=== PATIENT | female | born 1985 | race Caucasian/White ===

== ENCOUNTER 2017-06-28 16:38 | Emergency (ER) | payer MEDICAID ==
[~2017-06-28] VITALS: Ht 162.6 cm; Wt 88.0 kg
[2017-06-28] MEDS ORDERED: HYDROCODONE/ACETAMINOPHEN 5/325MG TABLET PO ONE (17:45)
[2017-06-28 19:52] VITALS: BP 124/86
== END 2017-06-28 19:54 | disposition home or self-care (01) ==
LOC: ER 17:30
DX: S20.219A Contusion of unspecified front wall of thorax, initial encounter (principal); M54.9 Dorsalgia, unspecified; F17.200 Nicotine dependence, unspecified, uncomplicated; W10.9XXA Fall (on) (from) unspecified stairs and steps, initial encounter
CPT/HCPCS: 71110; 72070; 81025; 99284

== ENCOUNTER 2018-01-14 14:58 | Emergency (ER) | payer MEDICAID ==
[~2018-01-14] VITALS: Ht 165.1 cm; Wt 91.0 kg
[2018-01-14 15:07] VITALS: BP 118/86
== END 2018-01-14 18:59 | disposition left against medical advice (07) ==
LOC: ER 17:49
DX: Z53.21 Procedure and treatment not carried out due to patient leaving prior to being seen by health care provider (principal)

== ENCOUNTER 2020-12-26 22:02 | Emergency (ER) | payer MEDICAID ==
[~2020-12-26] VITALS: Ht 162.6 cm; Wt 81.0 kg
[2020-12-26 22:03] VITALS: BP 132/88
== END 2020-12-26 23:19 | disposition home or self-care (01) ==
LOC: ER 22:02
DX: F41.9 Anxiety disorder, unspecified (principal); F14.10 Cocaine abuse, uncomplicated; E11.9 Type 2 diabetes mellitus without complications
CPT/HCPCS: 81025; 93005; 99283

== ENCOUNTER 2021-01-13 01:15 | Emergency (ER) | payer MEDICAID ==
[~2021-01-13] VITALS: Ht 157.5 cm; Wt 73.0 kg
[2021-01-13 01:28] VITALS: BP 120/74
[2021-01-13] MEDS ORDERED: HYDROCODONE/ACETAMINOPHEN 5/325MG TABLET PO ONE (03:45)
[2021-01-13 05:44] LABS: CLARITY URINE TURBID (CLEAR); COLOR URINE YELLOW (YELLOW); KETONES URINE NEGATIVE (NEGATIVE); LEUKOCYTE ESTERASE URINE 3+ (NEGATIVE); NITRITE URINE NEGATIVE (NEGATIVE); OCCULT BLOOD URINE 2+ (NEGATIVE); PH URINE 5.5 (4.5-8.0); PROTEIN URINE 3+ (NEGATIVE); SPECIFIC GRAVITY URINE 1.014 (1.005-1.030); UROBILINOGEN URINE 0.2 E.U./dL (0.2-1.0)
[2021-01-13] MEDS ORDERED: CEPH250C2 MT (06:40)
[2021-01-13] MEDS ORDERED: T3 PO (06:41)
[2021-01-13] MEDS ORDERED: IBUPROFEN 600MG TABLET PO ONE (06:45)
[2021-01-14] MEDS ORDERED: IBUP-2030 MT (06:01)
== END 2021-01-13 07:19 | disposition home or self-care (01) ==
LOC: ER 01:15
DX: S22.31XA Fracture of one rib, right side, initial encounter for closed fracture (principal); F17.200 Nicotine dependence, unspecified, uncomplicated; F14.10 Cocaine abuse, uncomplicated; E11.9 Type 2 diabetes mellitus without complications; Y04.0XXA Assault by unarmed brawl or fight, initial encounter; Y93.89 Activity, other specified; Y92.89 Other specified places as the place of occurrence of the external cause; Y99.8 Other external cause status
CPT/HCPCS: 71101; 81003; 81025; 99285

== ENCOUNTER 2021-01-13 22:41 | Emergency (ER) | payer MEDICAID ==
[~2021-01-13] VITALS: Ht 172.7 cm; Wt 75.0 kg
[~2021-01-13 22:41] MED LIST: CEPH250C2 MT; T3 PO
[2021-01-14] MEDS ORDERED: HYDROCODONE/ACETAMINOPHEN 5/325MG TABLET PO ONE (01:30)
[2021-01-14] MEDS ORDERED: IBUP-2030 MT (06:01)
[2021-01-14] MEDS ORDERED: KETOROLAC 60MG/2ML VIAL IM ONE (06:15)
[2021-01-14 06:17] VITALS: BP 130/82
== END 2021-01-14 06:30 | disposition home or self-care (01) ==
LOC: ER 22:41
DX: S00.01XA Abrasion of scalp, initial encounter (principal); S20.212A Contusion of left front wall of thorax, initial encounter; Y04.2XXA Assault by strike against or bumped into by another person, initial encounter; Y93.89 Activity, other specified; Y92.512 Supermarket, store or market as the place of occurrence of the external cause; F14.90 Cocaine use, unspecified, uncomplicated
CPT/HCPCS: 70450; 71101; 72125; 81025; 96372; 99284; J1885

== ENCOUNTER 2021-03-31 05:29 | Emergency (ER) | payer MEDICAID ==
[~2021-03-31] VITALS: Ht 157.5 cm; Wt 73.0 kg
[~2021-03-31 05:29] MED LIST changes: +IBUP-2030 MT
[2021-03-31] MEDS ORDERED: IBUPROFEN 400MG TABLET PO ONE (06:00)
[2021-03-31] MEDS ORDERED: KETOROLAC 60MG/2ML VIAL IM ONE (09:15)
[2021-03-31 11:32] VITALS: BP 131/85
== END 2021-03-31 12:06 | disposition home or self-care (01) ==
LOC: ER 05:29
DX: S00.03XA Contusion of scalp, initial encounter (principal); F14.10 Cocaine abuse, uncomplicated; Z98.890 Other specified postprocedural states; V09.9XXA Pedestrian injured in unspecified transport accident, initial encounter; Y93.89 Activity, other specified; Y92.89 Other specified places as the place of occurrence of the external cause; Y99.8 Other external cause status
CPT/HCPCS: 70450; 73030; 96372; 99284; J1885

== ENCOUNTER 2021-04-02 02:43 | Emergency (ER) | payer MEDICAID ==
[~2021-04-02] VITALS: Ht 165.1 cm; Wt 78.0 kg
[2021-04-02 06:46] LABS: BASOPHILS % 0.6 % (0.0-2.0); EOSINOPHILS % 3.8 % (0.0-5.0); HEMOGLOBIN. 10.6 g/dL (12.0-16.0); LYMPHOCYTES % 33.7 % (20.0-50.0); MEAN CORPUSCULAR HEMOGLOBIN 26.8 pg (28.0-32.0); MEAN CORPUSCULAR VOLUME 78.2 fL (81.0-99.0); MEAN PLATELET VOLUME 7.1 fl (7.4-10.4); MONOCYTES % 8.6 % (2.0-8.0); NEUTROPHILS % 53.3 % (40.0-76.0); PLATELET 352 x1000/uL (130-400); RED BLOOD CELL COUNT 3.96 mill/uL (4.2-5.4); RED CELL DISTRIBUTION WIDTH 16.7 % (11.6-14.6)
[2021-04-02 06:50] LABS: CHLORIDE 108 mEq/L (98-107)
[2021-04-02 06:55] LABS: ETHANOL BLOOD < 10 mg/dL
[2021-04-02 07:02] LABS: HCG SCREEN NEGATIVE
[2021-04-02 11:37] VITALS: BP 133/81
== END 2021-04-02 11:39 | disposition home or self-care (01) ==
LOC: ER 02:43
DX: R06.00 Dyspnea, unspecified (principal); F18.188 Inhalant abuse with other inhalant-induced disorder; K92.0 Hematemesis; F91.8 Other conduct disorders; R03.0 Elevated blood-pressure reading, without diagnosis of hypertension; R00.0 Tachycardia, unspecified; F14.90 Cocaine use, unspecified, uncomplicated; Z87.828 Personal history of other (healed) physical injury and trauma
CPT/HCPCS: 36415; 80053; 80307; 80320; 80329; 84703; 85025; 99283; G0480

== ENCOUNTER 2022-11-28 16:02 | Emergency (ER) | payer SELFPAY ==
[~2022-11-28] VITALS: Ht 165.1 cm; Wt 100.0 kg
[2022-11-28 16:07] VITALS: BP 127/97; PULSE 126; RESP 18; TEMP 98.8; O2SAT 97
[2022-11-28 16:43] LABS: BASOPHILS % 0.9 % (0.0-2.0); HEMATOCRIT. 40.2 % (36.0-48.0); HEMOGLOBIN. 13.1 g/dL (12.0-16.0); LYMPHOCYTES % 21.8 % (20.0-50.0); MEAN CORPUSCULAR HEMOGLOBIN 27.5 pg (28.0-32.0); MEAN CORPUSCULAR HGB CONC 32.7 g/dL (31.0-37.0); MEAN PLATELET VOLUME 7.6 fl (7.4-10.4); MONOCYTES % 3.8 % (2.0-8.0); NEUTROPHILS % 72.5 % (40.0-76.0); PLATELET 433 x1000/uL (130-400); RED BLOOD CELL COUNT 4.78 mill/uL (4.2-5.4); WHITE BLOOD COUNT 11.8 x1000/uL (4.5-11.0)
[2022-11-28 16:54] LABS: CHLORIDE 106 mEq/L (98-107); INDEX HEMOLYSI 1 (1-3); INDEX ICTERIC 1 (1-4); INDEX LIPEMIC 1 (1-3); POTASSIUM 4.2 mEq/L (3.5-5.1); SODIUM 134 mEq/L (136-145)
[2022-11-28 17:14] LABS: ALANINE AMINOTRANSFERASE 45 IU/L (13-61); ALBUMIN 3.1 g/dL (3.4-5.0); ASPARTATE AMINOTRANSFERASE 39 IU/L (15-37); BILIRUBIN TOTAL 0.4 mg/dL (0.1-1.0); CALCIUM 10.2 mg/dL (8.5-10.1); CARBON DIOXIDE 20 mEq/L (21-32); CREATININE 1.3 mg/dL (0.6-1.3); GLUCOSE 147 mg/dL (70-105); PROTEIN TOTAL 8.3 g/dL (6.0-8.3); UREA NITROGEN BLOOD 13 mg/dL (7-21)
== END 2022-11-28 19:54 | disposition left against medical advice (07) ==
LOC: ER 16:02
DX: R10.9 Unspecified abdominal pain (principal); Z53.21 Procedure and treatment not carried out due to patient leaving prior to being seen by health care provider
CPT/HCPCS: 36415; 80053; 85025; 99281